=== PATIENT | female | born 1990 | race Caucasian/White ===

== ENCOUNTER 2022-10-05 01:59 | Day surgery (SDC) | payer BC, SELFPAY ==
[2022-09-24 10:30] VITALS: BMI 24.5
--- NOTE | 2022-09-24 10:35 | PC.NURSE ---
Report to the Outpatient Waiting Room, entrance under the green pavilion located off [facility], at time 0600 on date 10/05/22. Planned Procedure Time: 0730. Time changes happen often and if your time is changed the preop area will call you the afternoon before. - You and your visitor will be asked to self-screen and do not enter if you have any COVID symptoms. - Only one visitor is requested with a max of two and NO children visitors are allowed at this time. - The patient visitor may be requested to leave or wait in car when not with patient due to distancing restrictions. - A mask is REQUIRED within the hospital. Patients may have clear liquids (water, carbonated beverages, clear teas, apple juice) until 3 hours prior to surgery with a maximum of 20 ounces. - No food from midnight until time of surgery Take the following medications with a SIP of water the morning of surgery: N/A Medications to discontinue per physician: N/A Date to take last dose: N/A Please no make-up, nail libyan, hairspray, perfume, deodorant, or body powder the day of surgery. No jewelry (including any body piercings) or valuables the day of surgery, leave them at home. Please take a shower or bath the night before, or the morning of, surgery with an antibacterial soap. Wear comfortable, loose fitting clothing. - Jewelry must be removed prior to entering the operating room. Rings and piercings that are not removed may be cut off. - The hospital will not accept responsibility for valuables. - Please leave all valuables, including medications, at home the day of surgery. If you are going home after surgery, a licensed driver's license examiner must drive you home. - NO public transportation without another adult if you receive anesthesia. - We recommend that an adult stay with you for 24 hours following discharge. - We also recommend that you do not drive, make important decision, drink alcoholic beverages, or take any drugs that were not prescribed by your health care provider for at least 24 hours after your discharge time. Follow any additional instructions given to you from your surgeon. If you or anyone in your household have experienced Covid symptoms in the past week, please notify your surgeon or the nurse liaison at the phone number below for possible testing. Telephone instructions given to PT - MADDISON HOLLAND and asked if any additional questions and then verbalized understanding. Patient advised to call surgeon office or pre surgery nurse liaison [phone] if any additional questions.
--- NOTE | 2022-10-04 10:59 | PM.IMHP ---
H&P: HPI History of Present Illness Date/Time: 10/04/22 10:59 Chief Complaint: Cervical dysplasia and malpositioned IUD Narrative: Patito is a 32yo G0, who presents for scheduled surgery. Pap was LGSIL/HPV +, colpo showed MIRI 2 at the 12 and 1o'clock biopsy locations . She has a paragard IUD in place since 2019; but US confirmed that it is displaced in the REBECCA. Review of Systems Constitutional: Constitutional: Denies chills and Denies fever(s) Cardiovascular: Cardiovascular: Denies chest pain and Denies dyspnea Respiratory: Respiratory: Denies cough Gastrointestinal: Gastrointestinal: Denies abdominal pain and Denies change in stool character Genitourinary: Genitourinary: Denies abnormal menses, Reports pelvic pain, Denies vaginal discharge, Denies vaginal odor and Denies vaginal pruritus Neurologic: Denies dizziness and Denies headache(s) Psychiatric: Psychiatric: Denies anxiety and Denies depression [facility] Surgical History Surgical History H/O neck surgery mass removed History of colposcopy Family History Family History Other Ovarian cancer Social History Social History Smoking status: Former smoker Tobacco type: cigarettes Second hand tobacco smoke exposure: No Additional smoking assessment comments: FOR A SHORT TIME ABOUT 10 YRS AGO Alcohol intake: current Alcohol use details: 2/MONTH Substance use: never Substance use type: does not use Gender identity (if verbalized by the patient): Female Sexual Orientation (if Verbalized by the Patient): Straight or Heterosexual Spiritual care concerns: No Meds Home Medications and Allergies Home Medications Medication Instructions Recorded Confirmed Type copper 380 square mm intrauterine 1 device intrauterine ONCE 05/08/22 09/24/22 History device (ParaGard T 380A) Allergies Allergy/AdvReac Type Severity Reaction Status Date / Time No Known Allergies Allergy Mild Unverified 09/24/22 10:29 Exam Const: General: cooperative, healthy appearing, comfortable and no acute distress Resp: Effort & Inspection: normal respiratory effort Cardio: Rate: regular rate GI: Inspection: normal to inspection GI Palp: No abdominal tenderness and Yes Soft to palpation : Other: deferred to OR Skin: General skin exam: normal color Neuro: General: patient oriented x3 Extrem: General: normal to inspection Psych: Appearance: grossly normal Affect: normal affect Attitude: cooperative Assessment and Plan Assessment and plan (1) Moderate cervical dysplasia: Code(s): N87.1 - Moderate cervical dysplasia Status: Acute (2) IUD migration: Code(s): T83.32XA - Displacement of intrauterine contraceptive device, initial encounter Status: Acute Plan - Procced with IUD removal (possible hysteroscopy) with LEEP - Risks and benefits discussed in detail - IUD will be replaced 6-8 wks post-op in office
[2022-10-05] MEDS: ACETAMINOPHEN 500 MG TABLET 1000 MG PO (06:45)
--- NOTE | 2022-10-05 06:45 | P.PNAN_ITS ---
Anes - Initial Pre Proc Eval Procedure: Operation Date: 10/05/22 07:30 Proposed Procedures p Loop Electrical Excision Procedure, - Guerline Padilla MD s Hysteroscopy with Intrauterine Device Removal - Guerline Padilla MD Date/Time: 10/05/22 06:45 Surgeon: Guerline Padilla MD Pre Op Diagnosis: cervical dysplasia, Retained IUD Patient Data Age: 32 Gender: F Height: 1.65 m Weight: 66.7 kg Allergies Allergy/AdvReac Type Severity Reaction Status Date / Time No Known Allergies Allergy Mild Unverified 09/24/22 10:29 Home Medications Medication Instructions Recorded Confirmed Type copper 380 square mm intrauterine 1 device intrauterine ONCE 05/08/22 09/24/22 H istory device (ParaGard T 380A) Patient hx anesthesia problems: none Family hx anesthesia problems: none Results Review: All pre-operative results and documents have been reviewed as part of the pre- operative evaluation. [facility] Surgical History Surgical History H/O neck surgery mass removed History of colposcopy Family History Family History Other Ovarian cancer Social History Social History Smoking status: Former smoker Tobacco type: cigarettes Second hand tobacco smoke exposure: No Additional smoking assessment comments: FOR A SHORT TIME ABOUT 10 YRS AGO Alcohol intake: current Alcohol use details: 2/MONTH Substance use: never Substance use type: does not use Living arrangements: with family Gender identity (if verbalized by the patient): Female Sexual Orientation (if Verbalized by the Patient): Straight or Heterosexual Spiritual care concerns: No Anes - Eval Final PreProcedure Day of Procedure 10/05/22 06:45 Patient weight: normal Heart: regular rate and rhythm Lungs: clear to auscultation Airway: Mallampati scale class 1 Neurological: alert and oriented Last oral intake: >/= 8 hours ASA classification: I Emergent: no Anesthetic plan: proceed Anesthesia type and monitoring: general GIVS and standard monitoring Results Review: All pre-operative results and documents have been reviewed as part of the pre- operative evaluation. Informed Consent: The patient's anesthetic plan and its attendant risks and benefits were discussed with the patient/family/POA. Questions were solicited and answers provided to the satisfaction of the patient/family/POA.
[2022-10-05] MEDS: LACTATED RINGERS 1,000 ML 30 ML IV CONT (07:00)
[2022-10-05 07:01] VITALS: BP 112/76; PULSE 76; RESP 14; TEMP 36.7; O2SAT 100
--- NOTE | 2022-10-05 07:02 | WPDHPUPDATE1 ---
History and Physical Update Update Date/Time: 10/05/22 07:02 History and Physical has been reviewed, including an updated exam of the patient. There are NO changes in the patient's condition. Risks, benefits, and alternatives have been discussed and questions answered. Patient agrees to proceed with procedure.
[2022-10-05] MEDS: BUPIVACAINE/EPINEPHRINE 0.5% 10 ML VIAL 30 ML INFILTRATE (07:42)
[2022-10-05] MEDS: KETOROLAC 30 MG/ML VIAL (*BKC) IV PUSH (07:47)
--- NOTE | 2022-10-05 08:07 | P.OP_ITS ---
Procedure Note - Detailed Date of Procedure 10/05/22 Pre-op Diagnosis cervical dysplasia, Retained IUD Post-op Diagnosis Same Procedure Performed IUD removal, LEEP, top hat, ECC Surgeon Guerline Padilla MD Anesthesia MAC Findings Lower part of IUD visible protruding out of cervical os; IUD removed in whole without issue. No uptake of lugol's from 11-1 o'clock. Good hemostasis at end of case. Description of Procedure Patient was taken to the operating room where she was placed under MAC sedation without complications. She was then prepped and draped in the normal fashion in the dorsal lithotomy position with her legs in low Alessio stirrups. A time-out w as performed and no preoperative antibiotics were indicated. A coated speculum attached to suction was then placed within the vagina, where the cervix was easily identified. The IUD was easily visualized. The strings were grasped with a ring forcep and the IUD was removed in whole without complications. The cervix was then injected with 0.25% Marcaine with epinephrine (10cc were used). Lugol?s solution was then applied to the cervix. No uptake was noted from 11 to 1 o'clock. The LEEP was then obtained in a single swipe from the patient?s left to right. The LEEP was removed and a silk stitch was placed at 12:00 p.m. to orient the tissue for pathology. A top-hat was then obtained in the same manner. A silk stitch was then placed at 12:00 p.m. An ECC was then collected. The LEEP bed was then cauterized using the roller ball. Monsel?s solution was then placed in the LEEP bed. Good hemostasis was noted. Sponge, lap, instrument, and needle counts were correct at the end of the procedure. The patient was awoken from anesthesia and taken to recovery in a stable condition with plans of same-day discharge home. Estimated Blood Loss 5 Pathology Yes (Leep bed (stitch at 12 o'clock), top hat (stitch at 12 o'clock), ECC) Complications No immediate complications Condition Stable Disposition Same day [facility] Billing Surgery - Charge Forward: Surgery Billing
[2022-10-05 08:08] VITALS: BP 99/52; PULSE 79; RESP 16; O2SAT 98
[2022-10-05 08:30] VITALS: BP 97/53; PULSE 67; RESP 16; O2SAT 100
[2022-10-05 08:55] VITALS: BP 101/64; PULSE 60; RESP 16
== END 2022-10-05 09:03 | disposition home or self-care (01) ==
PROVIDERS: PCP Family Medicine Sports Medicine; Visit Provider Obstetrics & Gynecology
PROC: 0UBC7ZZ Excision of Cervix, Via Natural or Artificial Opening (ICD-10-PCS; CPT 57522; principal; 2022-10-05 07:30)
PROC: 0U5B8ZZ Destruction of Endometrium, Via Natural or Artificial Opening Endoscopic (ICD-10-PCS; CPT 58563; 2022-10-05 07:30)
DX: D06.1 Carcinoma in situ of exocervix (principal); T83.32XA Displacement of intrauterine contraceptive device, initial encounter; Y84.8 Other medical procedures as the cause of abnormal reaction of the patient, or of later complication, without mention of misadventure at the time of the procedure; Z87.891 Personal history of nicotine dependence
CPT/HCPCS: 58301; 57522; 88305; 88307; 88342; A9270; J1885; J2250; J2704; J3010; J7120